=== PATIENT | female | born 1975 | race Caucasian/White ===

== ENCOUNTER 2018-10-10 03:03 | Outpatient (CLI) | payer OTHER ==
--- NOTE | 2018-10-10 07:23 | ULT ---
ULTRASOUND ABDOMEN COMPLETE: Date: 10/10/18 INDICATION: History of intra-abdominal cyst. COMPARISON: Prior exam is not available for comparison, although size of cyst is reported as 4.5 cm, March 31. TECHNIQUE: Garcia-scale ultrasound evaluation of the liver, gallbladder, spleen, pancreas, common bile duct, kidne ys, abdominal aorta, and inferior vena cava (IVC). FINDINGS: Within the right abdomen, difficult to reliably delineate from an etiologic source, there is a cystic lesion measuring 5.5 cm in maximum diameter. There is slight coarsening of the hepatic echotexture. No hydronephrosis of the kidneys, or evidence of acute gallbladder pathology. Imaged aspects of the spleen and pancreas are grossly unremarkable. N o ascites. IMPRESSION: Size progressive cyst of the right abdomen, etiologic source of which is not delineated on the basis of this exam. No definite internal nodular solid component is confirmed. As a conservative measure, g iven the size progression, recommend follow-up cross-sectional imaging pre and postcontrast, which co uld be obtained with either CT or MRI, pending clinical factors. Exam results and recommendations were discussed with the patient at the time of the exam. CODE CR. POS: ROSA
== END 2018-10-10 03:04 | disposition home or self-care (01) ==
LOC: ULT 03:03
PROVIDERS: ATTEND Family Medicine
DX: R10.84 Generalized abdominal pain (principal); R19.00 Intra-abdominal and pelvic swelling, mass and lump, unspecified site
CPT/HCPCS: 76700

== ENCOUNTER 2018-11-14 03:03 | Outpatient (CLI) | payer OTHER ==
--- NOTE | 2018-11-14 07:33 | CT ---
CT ABDOMEN AND PELVIS WITH CONTRAST: Date: 11/14/18 INDICATION: Abdominal mass. Reference is made to prior ultrasound dated 10/10/18. FINDINGS: There is a benign-appearing, well-circumscribed, round, cystic mass of the right retroperitoneum kimber cent to the right psoas muscle, with Hounsfield units of approximately 19. Mass measured 5.2 x 4.8 cm in axial dimensions x 5.7 cm in craniocaudal dimension. The etiology of the cyst is not discerned on the basis of this exam as it is not confirmed to arise from adjacent structures. There is no focal abnormality of the solid abdominal organs. The bowel is normal in caliber. Visualiz ed lung bases reveal minimal volume loss. Abdominal aorta is normal in caliber. There is heterogeneit y of the uterus and adnexa with a dominant follicle seen at the left adnexa. This measures 2.1 cm in diameter. The osseous structures are intact. IMPRESSION: 1. Right retroperitoneal cyst, which is nonaggressive in CT appearance. Etiology is not discerned on the basis of this exam, and the structure is not confirmed to arise from adjacent organs. For contin ued evaluation, recommend periodic sonographic surveillance (3-4 months) to exclude size progression. If finding increases, percustaneous sampling would be indicated. 2. Heterogeneity and prominence of the uterus and adnexa with a dominant cyst to the left adnexa, fa voring a physiologic follicle. POS: ROSA
[2018-11-14] MEDS ORDERED: Iopamidol 370 76% 50 ML VIAL FS ONE (17:03)
[2018-11-14] MEDS ORDERED: ISOVUE-370 76%-LOCM 1 ML ONE (17:03)
== END 2018-11-14 03:04 | disposition home or self-care (01) ==
LOC: CT 03:03
PROVIDERS: ATTEND Family Medicine
DX: R19.00 Intra-abdominal and pelvic swelling, mass and lump, unspecified site (principal); K68.9 Other disorders of retroperitoneum; N83.8 Other noninflammatory disorders of ovary, fallopian tube and broad ligament
CPT/HCPCS: 74177; Q9966; Q9967

== ENCOUNTER 2024-08-07 07:08 | Outpatient (CLI) | payer BC ==
[2024-08-07] MEDS ORDERED: Iopamidol 370 76% 100 ML VIAL ONE (09:05)
== END 2024-08-07 07:09 | disposition home or self-care (01) ==
LOC: CT 07:08
PROVIDERS: ATTEND Surgery
DX: K66.8 Other specified disorders of peritoneum (principal); R19.03 Right lower quadrant abdominal swelling, mass and lump
CPT/HCPCS: 74177